=== PATIENT | female | born 1970 | race Two or more races ===

== ENCOUNTER 2020-03-11 23:34 | Inpatient (IN) | payer OTHER ==
[~2020-03-11] VITALS: Ht 154.9 cm; Wt 74.4 kg
--- NOTE | 2020-03-11 23:40 | NUR ---
JOANIE MORELAND at bedside for MSE
[2020-03-11] MEDS ORDERED: LEVO50TA8 PO (23:58)
[2020-03-12 00:26] LABS: BASOPHILS % (AUTO) 0.1 % (0.0-2.0); HEMATOCRIT 38.3 % (31.2-41.9); HEMOGLOBIN 12.9 g/dL (10.9-14.3); LYMPHOCYTES # (AUTO) 1.1 K/uL (20.0-40.0); LYMPHOCYTES % (AUTO) 13.3 % (20.5-51.5); MEAN CORPUSCULAR HEMOGLOBIN 31.5 uug (24.7-32.8); MEAN CORPUSCULAR HGB CONC 34 g/dL (32.3-35.6); MEAN CORPUSCULAR VOLUME 93.6 fL (75.5-95.3); MONOCYTES # (AUTO) 0.4 K/uL (2.0-10.0); MONOCYTES % (AUTO) 5.5 % (0.0-11.0); NEUTROPHILS # (AUTO) 6.4 K/uL (1.8-8.9); NEUTROPHILS % (AUTO) 81.1 % (38.5-71.5); PLATELET COUNT (AUTO) 225 K/uL (179-408); RED BLOOD CELL COUNT(AUTO) 4.09 MIL/uL (3.63-4.92); WHITE BLOOD COUNT (AUTO) 7.9 K/uL (3.8-11.8)
[2020-03-12 00:27] LABS: ABG BASE EXCESS 1.4 mmol/L; ABG PCO2 36.5 mmHg (35.0-45.0); ABG PH 7.454 (7.350-7.450); ABG PO2 73.5 mmHg (75.0-100.0); ABG SITE RIGHT RADIAL; ABG TOTAL HEMOGLOBIN 13.7 G/dL (12.0-16.0); COHb 0.7 % (0.5-1.5); MetHb 0.1 % (0.0-1.5); O2Hb 94.1 % (94.0-97.0)
[2020-03-12 00:33] LABS: CARBON DIOXIDE 27 mmol/L (21-32); CHLORIDE 105 mmol/L (98-107); CREATININE 0.9 mg/dL (0.6-1.3); GLUCOSE 116 mg/dL (74-106); POTASSIUM 4.1 mmol/L (3.5-5.1); UREA NITROGEN, BLOOD 10 mg/dL (7-18)
--- NOTE | 2020-03-12 00:33 | NUR ---
no acute distress noted at this time, vitals WNL
[2020-03-12 00:41] LABS: CREATINE KINASE, TOTAL 63 U/L (26-192)
[2020-03-12 00:50] LABS: ALANINE AMINOTRANSFERASE 44 U/L (14-59); ALKALINE PHOSPHATASE 95 U/L (50-136); ASPARTATE AMINOTRANSFERASE 35 U/L (15-37); BILIRUBIN,TOTAL 0.2 mg/dL (0.2-1.0); FERRITIN 43 ng/mL (8-252); LACTATE DEHYDROGENASE 228 U/L (81-234); TOTAL PROTEIN, SERUM 7.3 g/dL (6.4-8.2)
[2020-03-12 02:26] LABS: *BILIRUBIN,URIN NEGATIVE (NEGATIVE); *BLOOD, URINE NEGATIVE (NEGATIVE); *CLARITY,URINE CLEAR (CLEAR); *COLOR,URINE YELLOW (YELLOW); *KETONES,URINE NEGATIVE (NEGATIVE); *UROBILINOGEN,URINE 0.2 E.U./dl (NORMAL); LEUKOCYTE ESTERASE ,URINE NEGATIVE (NEGATIVE); NITRITE, URINE NEGATIVE (NEGATIVE); PH,URINE 8.5 (5.0-8.0); UGLUCOSE NEGATIVE (NEGATIVE)
[2020-03-12] MEDS ORDERED: ASPIRIN 325 MG TABLET PO ONE (03:00)
[2020-03-12] MEDS ORDERED: ASPIRIN 325 MG TABLET ONE (03:05)
[2020-03-12] MEDS ORDERED: ATROPINE SULFATE 1 MG/10 ML DISP.SYRIN IV ONE (03:15)
[2020-03-12] MEDS ORDERED: ATROPINE SULFATE 1 MG/10 ML DISP.SYRIN ONE (03:18)
--- NOTE | 2020-03-12 03:25 | NUR ---
Dr. Corona on panel call with Dr. Janak Head.
[2020-03-12] MEDS ORDERED: DEXAMETHASONE SOD PHOSPHATE 4 MG INJ IV ONE (03:45)
[2020-03-12] MEDS ORDERED: DEXAMETHASONE SOD PHOSPHATE 10 MG INJ ONE (03:51)
--- NOTE | 2020-03-12 04:30 | NUR ---
Patient noted resting in bed with eyes closed, no signs of acute distress noted
[2020-03-12] MEDS ORDERED: ONDANSETRON 4 MG/2 ML VIAL IV PRN (06:00)
[2020-03-12] MEDS ORDERED: ALBUTEROL SULFATE 8 GM HFA.AER.AD IH PRN (06:00)
--- NOTE | 2020-03-12 06:11 | NUR ---
Patient sleeping in bed, no signs of acute distress
--- NOTE | 2020-03-12 07:05 | NUR ---
Patient is resting comfortably in bed with eyes closed, NAD noted, remaines on room air, o2 sat 97%.
[2020-03-12] MEDS ORDERED: DEXAMETHASONE SOD PHOSPHATE 4 MG INJ IV SCH (08:00)
[2020-03-12 08:30] VITALS: BP 133/73
[2020-03-12] MEDS ORDERED: LEVOTHYROXINE SODIUM 50 MCG TABLET PO SCH (09:00)
[2020-03-12] MEDS ORDERED: ENOXAPARIN SODIUM 40 MG/0.4 ML DISP.SYRIN SQ SCH (10:00)
[2020-03-12 11:30] VITALS: BP 153/81
[2020-03-12 16:00] VITALS: BP 137/75
--- NOTE | 2020-03-12 18:35 | NUR ---
PATIENT CALM AND COMFORTABLE WITH NO SIGNS OF DISTRESS THROUGH OUT SHIFT AND STABLE VITAL SIGNS ; PATIENT AT BASELINE MENTAL STATUS; MEDICATION COMPLIANT.
[2020-03-12] MEDS ORDERED: AMLO5TAB4 PO (18:54)
[2020-03-12] MEDS ORDERED: ONDA4VIA23 IV (18:54)
[2020-03-12] MEDS ORDERED: ALBU8HFA4 IH (18:54)
[2020-03-12 20:00] VITALS: BP 147/71
--- NOTE | 2020-03-12 20:23 | NUR ---
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 REPORT GIVEN TO AMBULANCE STAFF, TOOK ALL BELONGINGS.
== END 2020-03-12 22:04 | disposition short-term general hospital (02) | DRG 137 ==
LOC: ER 23:39 → TELE3 03-12 07:40
PROVIDERS: ADMIT Internal Medicine; ATTEND Internal Medicine
DX: U07.1 COVID-19 (principal); E03.9 Hypothyroidism, unspecified; E66.9 Obesity, unspecified; J12.89 Other viral pneumonia; R73.03 Prediabetes; Z68.31 Body mass index [BMI] 31.0-31.9, adult; R00.1 Bradycardia, unspecified; J96.01 Acute respiratory failure with hypoxia; I10 Essential (primary) hypertension
CPT/HCPCS: 36415; 36600; 70030-TC; 71045; 82785; 83605; 83615; 84443; 85025; 85730; 86140; 87040; 87400; 93005; 93307; A4663; G0378; J0461; J1100; J1650; J3535